=== PATIENT | female | born 1995 | race Caucasian/White ===

== ENCOUNTER 2018-12-08 14:55 | Emergency (ER) | payer MEDICAID ==
[~2018-12-08] VITALS: Ht 162.6 cm; Wt 84.4 kg
[2018-12-08 15:05] VITALS: BP 135/82
[2018-12-08] MEDS ORDERED: ACETAMINOPHEN ES 500 MG TABLET ONE (15:16)
[2018-12-08] MEDS ORDERED: ACETAMINOPHEN 325 MG TABLET PO ONE (15:30)
== END 2018-12-08 16:45 | disposition home or self-care (01) ==
LOC: ER 14:57
DX: S92.422A Displaced fracture of distal phalanx of left great toe, initial encounter for closed fracture (principal); W22.8XXA Striking against or struck by other objects, initial encounter; Y93.B9 Activity, other involving muscle strengthening exercises; Y92.89 Other specified places as the place of occurrence of the external cause; Y99.8 Other external cause status
CPT/HCPCS: 73660; 99283; A6403

== ENCOUNTER 2018-12-12 20:11 | Emergency (ER) | payer MEDICAID ==
[~2018-12-12] VITALS: Ht 162.6 cm; Wt 86.2 kg
[2018-12-12 20:45] VITALS: BP 120/81
== END 2018-12-12 20:46 | disposition home or self-care (01) ==
LOC: ER 20:14
DX: S92.492D Other fracture of left great toe, subsequent encounter for fracture with routine healing (principal); Z60.2 Problems related to living alone; X58.XXXD Exposure to other specified factors, subsequent encounter
CPT/HCPCS: Z7502